=== PATIENT | male | born 1960 | race Caucasian/White ===

== ENCOUNTER 2017-03-28 00:24 | Emergency (ER) | payer OTHER, BC ==
[~2017-03-28] VITALS: Ht 182.9 cm; Wt 113.3 kg
[2017-03-28] MEDS ORDERED: SODIUM CHLORIDE 0.9% 1,000 ML IV ONE (01:00)
[2017-03-28] MEDS ORDERED: MORPHINE SULFATE 4 MG/ML, 1ML IVPush PRN (01:00)
[2017-03-28] MEDS ORDERED: ONDANSETRON 2MG/ML, 2ML IVPush ONE (01:00)
[2017-03-28] MEDS ORDERED: LORazepam 2 MG/ML, 1ML ONE (01:19)
[2017-03-28] MEDS ORDERED: LORazepam 2 MG/ML, 1ML IVPush ONE (01:30)
[2017-03-28] MEDS ORDERED: MIDAZOLAM 1 MG/ML, 5ML ONE (03:59)
[2017-03-28] MEDS ORDERED: FENTANYL PF 100 MCG/2ML ONE ×2 (04:00→04:15)
[2017-03-28] MEDS ORDERED: FLUMAZENIL 0.1 MG/1 ML, 5ML ONE (04:00)
[2017-03-28] MEDS ORDERED: NALOXONE 0.4 MG/ML, 1ML ONE (04:01)
[2017-03-28] MEDS ORDERED: PROPOFOL 10 MG/ML, 20ML ONE (04:31)
[2017-03-28 06:14] VITALS: BP 128/64
== END 2017-03-28 06:17 | disposition home or self-care (01) ==
LOC: ED 05:55
DX: T18.128A Food in esophagus causing other injury, initial encounter (principal); W45.8XXA Other foreign body or object entering through skin, initial encounter; Y93.89 Activity, other specified; Y99.8 Other external cause status; Y92.89 Other specified places as the place of occurrence of the external cause
CPT/HCPCS: 43247; 96361; 96374; 99152; 99285; J2060; J7030; 96375